=== PATIENT | female | born 1960 | race Caucasian/White ===

== ENCOUNTER 2017-05-10 10:05 | Emergency (ER) | payer BC, OTHER ==
--- NOTE | 2017-05-10 12:30 | XRAY Preliminary Report ---
Exam: XR Wrist 3 View RT IMPRESSION: 1. 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 2. Moderate right first carpometacarpal osteoarthritis. 3. Mild right wrist soft tissue swelling. [facility] SITE ID: [id number]
--- NOTE | 2017-05-10 12:33 | XRAY Report ---
EXAM: RIGHT WRIST RADIOGRAPHY EXAM DATE: 05/10/2017 12:19 PM. CLINICAL HISTORY: Right wrist pain no injury. COMPARISON: None. TECHNIQUE: 3 views. FINDINGS: Bones: Bones are osteopenic. There is flattening and sclerosis of the lunate. Joints: Moderate first carpometacarpal osteoarthritis. Soft Tissues: Mild soft tissue swelling about the wrist IMPRESSION: 1. 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 2. Moderate right first carpometacarpal osteoarthritis. 3. Mild right wrist soft tissue swelling. [facility] Referring Provider Line: [phone] SITE ID: [id number]
[2017-05-10] MEDS ORDERED: HYDROcod/ACET 5/325 Prepack 6 PO STA ×2 (13:20→13:43)
[2017-05-10] MEDS ORDERED: IBUPROFEN 800 MG TABLET PO STA (13:20)
--- NOTE | 2017-05-10 13:27 | ED Physician Documentation ---
History of Present Illness - Stated complaint Stated Complaint: R HAND PX - Chief complaint Chief Complaint: Ext Problem - History obtained from History obtained from: Patient - Additonal information Additional information: Patient is a [id number] female who works at [employer]. She presents with a complaint of right wrist pain off and on for several months and has been getting worse for the past couple weeks. She uses his hand quite a bit in her usual duties. The pain is worse with movement and better with rest. On examination the the patient has used a [id number] wrist brace with some improvement in her symptoms. She denies any history of any significant medical problems and has no history of injury to this wrist or any other part of her body. Review of systems: For pertinent positive and negatives in the review of systems please see the history of present illness, otherwise all other systems have been reviewed and are negative. Dragon disclaimer: Parts of this medical record were created using voice recognition technology. Because of the inherent limitations of this system, occasional same sounding word substitutions do occur and persist despite proofreading. Please read the document for context. Review of Systems Musculoskeletal: reports: Extremity pain, Joint pain, Extremity swelling, Joint swelling PD PAST MEDICAL HISTORY - Past Medical History Past Medical History: No - Past Surgical History Past Surgical History: Yes General: Bowel surgery, EGD - Present Medications Home Medications: Ambulatory Orders Medication Instructions Recorded Confirmed Ibuprofen 600 mg PO TID PRN #20 tablet 05/10/17 Tramadol HCl 50 mg PO Q8HR PRN #20 tablet 05/10/17 - Allergies Allergies/Adverse Reactions: Allergies Allergy/AdvReac Type Severity Reaction Status Date / Time No Known Drug Allergies Allergy Verified 05/10/17 10:21 - Social History Does the pt smoke?: No Smoking Status: Never smoker Does the pt drink ETOH?: Yes ETOH Use: Wine Does the pt have substance abuse?: No - Immunizations Immunizations are current?: No Immunizations: TDAP >10years/unknown - POLST Patient has POLST: No PD ED PE NORMAL - Vitals Vital signs reviewed: Yes - General General: Alert and oriented X 3, No acute distress, Well developed/nourished - Extremities Extremities: Other (On examination of the right wrist there is mild tenderness at the radial carpal joint. There is mild soft tissue swelling noted. There is point tenderness in this area. Range of motion is decreased in flexion and extension. The skin is intact) Results - Vitals Vitals: Vital Signs - 24 hr 05/10/17 10:19 Temperature 36.3 C L Heart Rate 67 Respiratory 16 Rate Blood Pressure 154/99 H O2 Saturation 100 PD MEDICAL DECISION MAKING - ED course Complexity details: reviewed old records, reviewed results ED course: X-rays were taken of this patient's right wrist and there is evidence for avascular necrosis of the right lunate with moderate carpometacarpal osteoarthritis. Also moderate soft tissue swelling is seen. The patient was advised of these findings and given the x-ray report. We will have her follow- up with her local orthopedist over she may ultimately require a hand specialist. Disposition: To home Clinical impression: 1. Avascular necrosis of the lunate right hand ` Departure - Departure Disposition: 01 Home, Self Care Clinical Impression: Avascular necrosis of bone Condition: Good Instructions: Osteoarthritis Follow-Up: Prabhjot Hassan MD [Provider Admit Priv/Credential] - Prescriptions: Tramadol HCl 50 mg PO Q8HR PRN #20 tablet PRN Reason: Pain Ibuprofen 600 mg PO TID PRN #20 tablet PRN Reason: Pain Comments: You have avascular necrosis of your lunate. Please follow-up with Dr. Hassan from orthopedics. Forms: Activity restrictions
[2017-05-10] MEDS ORDERED: HYDROcod/ACETAM 5/325 MG TABLET ONE ×2 (13:32→13:51)
[2017-05-10] MEDS ORDERED: IBUPROFEN 800 MG TABLET PO ONE (13:33)
[2017-05-10] MEDS ORDERED: HYDROcod/ACET 5/325 Prepack 6 PO ONE (13:38)
[2017-05-10 13:41] VITALS: BP 151/99
[2017-05-10] MEDS ORDERED: HYDROcod/ACETAM 5/325 MG TABLET PO STA (13:47)
== END 2017-05-10 13:57 | disposition home or self-care (01) ==
LOC: ED 10:05
DX: M87.9 Osteonecrosis, unspecified (principal)
CPT/HCPCS: 73110; 99283; A9270

== ENCOUNTER 2019-07-12 09:39 | Emergency (ER) | payer OTHER ==
--- NOTE | 2019-07-12 10:54 | XRAY Report ---
Reason: FALL Procedure Date: 07/12/2019 Accession Number: [id number] / [id number] Procedure: XR - Hip w/Pelvis 2-3V RT CPT Code: FULL RESULT: EXAM: RIGHT HIP RADIOGRAPHY EXAM DATE: 07/12/2019 10:22 AM. CLINICAL HISTORY: Right hip/low back pain since fall on 07/09/2019. COMPARISON: None. TECHNIQUE: 2 views. FINDINGS: Bones: There is no acute fracture, dislocation or subluxation. There is an 18 mm juxtacortical calcification noted adjacent to the lateral cortex of the proximal right femur. There is no appreciable abnormality of the underlying cortex or medullary space. This may represent an incidental juxtacortical soft tissue calcification but cannot exclude a lesion arising from the bone on these images. Joints: Normal. No dislocation. The hip joint space is preserved. Soft Tissues: No soft tissue swelling. IMPRESSION: 1. No acute fracture or dislocation. 2. Nonspecific 18 mm juxtacortical calcification adjacent to the proximal lateral right femur. Consider further evaluation with CT. [facility]
--- NOTE | 2019-07-12 11:48 | ED Physician Documentation ---
PD HPI LOWER EXT INJURY - Stated complaint Stated Complaint: GLF - Chief complaint Chief Complaint: Trauma Ext - History obtained from History obtained from: Patient - History of Present Illness PD HPI LOW EXT INJURY LOCATION: Right, Hip, Other (and right lateral ribs/chest) Type of injury: Fall (tripped and fell to right side 3 days ago. Pain posterolateral right hip and some to right lateral lower ribs as well.) Where injury occurred: Home (on her front steps) Timing - onset: How many days ago (fell 3 days ago and thought would be improved over 1-2 days. Still with lateral right hip and lateral right lower ribs pains.) Timing - duration: Days Timing - details: Abrupt onset, Still present Improved by: Rest Worsened by: Moving, Palpating, Other (not with deep breathing) Associated symptoms: No: Weakness, Numbness Review of Systems Constitutional: denies: Fever, Chills Nose: reports: Rhinorrhea / runny nose. denies: Congestion Throat: denies: Sore throat Cardiac: reports: Chest pain / pressure (lateral right lower ribs area hurts with movement and cough/sneezing.). denies: Palpitations, Pedal edema, Calf pain Respiratory: denies: Cough GI: denies: Nausea, Vomiting Musculoskeletal: reports: Joint pain (lateral right hip) PD PAST MEDICAL HISTORY - Past Medical History Cardiovascular: None Respiratory: None Neuro: None - Past Surgical History Past Surgical History: Yes General: Bowel surgery, EGD - Present Medications Home Medications: Ambulatory Orders Medication Instructions Recorded Confirmed Ibuprofen 600 mg PO TID PRN #20 tablet 05/10/17 Tramadol HCl 50 mg PO Q8HR PRN #20 tablet 05/10/17 Hydrocodone/Acetaminophen 1 each PO Q6H PRN #14 tablet 07/12/19 [Hydrocodon-Acetaminophen 5-325] Naproxen 375 mg PO BID #20 tablet 07/12/19 Tizanidine HCl 4 mg PO TID PRN #20 capsule 07/12/19 - Allergies Allergies/Adverse Reactions: Allergies Allergy/AdvReac Type Severity Reaction Status Date / Time No Known Drug Allergies Allergy Verified 07/12/19 09:42 - Social History Does the pt smoke?: No Smoking Status: Never smoker Does the pt drink ETOH?: Yes Does the pt have substance abuse?: No - Immunizations Immunizations are current?: No Immunizations: TDAP >10years/unknown - POLST Patient has POLST: No PD ED PE NORMAL - Vitals Vital signs reviewed: Yes - General General: Alert and oriented X 3, No acute distress, Well developed/nourished - HEENT HEENT: Atraumatic - Neck Neck: Supple, no meningeal sign, No bony TTP, No adenopathy - Cardiac Cardiac: RRR, No murmur - Respiratory Respiratory: Clear bilaterally, Other (right lateral lower ribs margin with tenderness but no crepitance nor deformity.) - Abdomen Abdomen: Soft, Non tender - Back Back: No CVA TTP, No spinal TTP - Derm Derm: Normal color, Warm and dry - Extremities Extremities: No edema, No calf tenderness / cord, Other (right posterolateral hip tenderness without deformity. Passive ROM and impaction without pain. No deformity.) - Neuro Neuro: Alert and oriented X 3, No motor deficit, Normal speech Eye Opening: Spontaneous Motor: Obeys Commands Verbal: Oriented GCS Score: 15 Results - Vitals Vitals: Vital Signs - 24 hr 07/12/19 07/12/19 09:42 13:27 Temperature 36.6 C Heart Rate 87 80 Respiratory 17 18 Rate Blood Pressure 140/97 H 138/89 H O2 Saturation 99 100 Oxygen O2 Source Room air - Rads (name of study) right hip Radiology: Prelim report reviewed (normal (left hip with calcific change around the greater trochanter. She is not tender in that side. ), See rad report right ribs with chest Radiology: Prelim report reviewed PD MEDICAL DECISION MAKING - ED course Complexity details: considered differential, d/w patient Departure - Departure Disposition: 01 Home, Self Care Clinical Impression: Accidental fall Qualifiers: Encounter type: initial encounter Qualified Code(s): W19.XXXA - Unspecified fall, initial encounter Contusion, hip Qualifiers: Encounter type: initial encounter Laterality: right Qualified Code(s): S70.01XA - Contusion of right hip, initial encounter Chest wall contusion Qualifiers: Encounter type: initial encounter Laterality: right Qualified Code(s): S20.211A - Contusion of right front wall of thorax, initial encounter Condition: Stable Record reviewed to determine appropriate education?: Yes Instructions: ED Contusion Chest Wall, ED Contusion Hip Prescriptions: Hydrocodone/Acetaminophen [Hydrocodon-Acetaminophen 5-325] 1 each PO Q6H PRN #14 tablet PRN Reason: pain Naproxen 375 mg PO BID #20 tablet Tizanidine HCl 4 mg PO TID PRN #20 capsule PRN Reason: Spasms Comments: Use some anti-inflammatories such as naproxen twice daily for the next 7 to 10 days. Add tizanidine muscle relaxant for stiffness and spasm. Add Tylenol or hydrocodone if needed for pain. Off work for couple of days and hopefully improving during that time. Follow-up with your primary care if not improved over the next few days. Forms: Activity restrictions Discharge Date/Time: 07/12/19 13:28
[2019-07-12] MEDS ORDERED: ACETAMINOPHEN 325 MG TABLET PO STA (12:00)
[2019-07-12] MEDS ORDERED: IBUPROFEN 600 MG TABLET PO STA (12:00)
[2019-07-12] MEDS ORDERED: METHOCARBAMOL 500 MG TABLET PO STA (12:01)
--- NOTE | 2019-07-12 12:51 | XRAY Report ---
Reason: fall with right lateral lower ribs pain Procedure Date: 07/12/2019 Accession Number: [id number] / [id number] Procedure: XR - Ribs w/PA Chest RT CPT Code: FULL RESULT: EXAM: RIGHT RIB RADIOGRAPHY EXAM DATE: 07/12/2019 12:26 PM. CLINICAL HISTORY: Fall with right lateral lower ribs pain. COMPARISON: None. TECHNIQUE: 1 view of the chest and 2 views of the ribs. FINDINGS: Bones: Normal. No fracture or bone lesion. Lungs: No focal opacities. No pneumothorax. No pleural effusions. Mediastinum: Heart and mediastinal contours are unremarkable. Other: None. IMPRESSION: Normal chest and rib radiography. [facility]
[2019-07-12 13:28] VITALS: BP 138/89
== END 2019-07-12 13:28 | disposition home or self-care (01) ==
LOC: ED 09:39
DX: S70.01XA Contusion of right hip, initial encounter (principal); S20.211A Contusion of right front wall of thorax, initial encounter; W10.8XXA Fall (on) (from) other stairs and steps, initial encounter; Y93.01 Activity, walking, marching and hiking; Y92.008 Other place in unspecified non-institutional (private) residence as the place of occurrence of the external cause
CPT/HCPCS: 71101; 73502; 99284; A9270

== ENCOUNTER 2021-03-26 16:33 | Outpatient (CLI) | payer OTHER | END 2021-03-26 16:34 | disposition home or self-care (01) | LOC: COV 16:33 | PROVIDERS: ATTEND Family Medicine | DX: R05 Cough (principal); R53.83 Other fatigue; Z20.822 Contact with and (suspected) exposure to COVID-19 ==